=== PATIENT | male | born 1950 | race African-American/Black ===

== ENCOUNTER 2017-01-10 12:37 | Emergency (ER) | payer OTHER ==
[~2017-01-10] VITALS: Ht 180.3 cm; Wt 80.0 kg
[2017-01-10] MEDS ORDERED: METF500T4 PO (12:43)
[2017-01-10] MEDS ORDERED: ATEN-42 PO (12:43)
[2017-01-10] MEDS ORDERED: WARF2TAB55 PO (12:43)
[2017-01-10 13:20] LABS: CARBON DIOXIDE 31 mEq/L (21-32); CHLORIDE 105 mEq/L (98-107)
[2017-01-10 14:51] VITALS: BP 138/71
== END 2017-01-10 14:54 | disposition home or self-care (01) ==
LOC: ER 12:51
DX: T67.5XXA Heat exhaustion, unspecified, initial encounter (principal); I48.91 Unspecified atrial fibrillation; Z79.01 Long term (current) use of anticoagulants; E11.9 Type 2 diabetes mellitus without complications; I10 Essential (primary) hypertension; I25.2 Old myocardial infarction; X30.XXXA Exposure to excessive natural heat, initial encounter; Y93.53 Activity, golf; Y92.39 Other specified sports and athletic area as the place of occurrence of the external cause
CPT/HCPCS: 36415; 80053; 93005; 99285; Z7610